=== PATIENT | male | born 1975 | race Caucasian/White ===

== ENCOUNTER 2025-08-11 21:48 | Emergency (ER) | payer MEDICAID ==
[~2025-08-11] VITALS: Ht 175.2 cm; Wt 77.1 kg
[~2025-08-11 21:48] MED LIST: MOTRIN800 MG PO; OXYCODONE HCL10 M1 PO; PREDNISONE20 M1 PO
[2025-08-11] MEDS ORDERED: KETOROLAC10 MG PO (23:14)
[2025-08-11] MEDS ORDERED: OXYCODONE HCL10 M1 PO (23:55)
[2025-08-12] MEDS ORDERED: OXYCODONE HCL 10 MG PO ONE ×2 (00:15)
[2025-08-12] MEDS ORDERED: OXYCODONE HCL 10 MG PO SCH (10:00)
== END 2025-08-12 00:32 | disposition home or self-care (01) ==
LOC: ED 21:48
DX: M19.042 Primary osteoarthritis, left hand (principal); M19.09 Primary osteoarthritis, other specified site; Z90.49 Acquired absence of other specified parts of digestive tract

== ENCOUNTER 2025-09-08 17:30 | Emergency (ER) | payer MEDICAID ==
[~2025-09-08] VITALS: Ht 175.2 cm; Wt 77.1 kg
[~2025-09-08 17:30] MED LIST changes: +KETOROLAC10 MG PO
[2025-09-08] MEDS ORDERED: PREDNISONE50 MG PO (17:49)
[2025-09-08] MEDS ORDERED: Acetaminophen/Hydrocodone 5 MG/325 MG TABLET PO ONE (17:50)
== END 2025-09-08 17:59 | disposition home or self-care (01) ==
LOC: ED 17:30
DX: M19.90 Unspecified osteoarthritis, unspecified site (principal); G89.29 Other chronic pain